=== PATIENT | female | born 1980 | race Caucasian/White ===

== ENCOUNTER → 2020-03-29 | Outpatient (CLI) | payer MEDICAID | LOC: COL.RAD 11:49 | DX: G43.109 Migraine with aura, not intractable, without status migrainosus (principal); M54.12 Radiculopathy, cervical region; Z86.69 Personal history of other diseases of the nervous system and sense organs; M47.812 Spondylosis without myelopathy or radiculopathy, cervical region ==

== ENCOUNTER → 2020-07-02 | Outpatient (CLI) | payer MEDICAID | LOC: MHCPAIN 13:16 | DX: M47.812 Spondylosis without myelopathy or radiculopathy, cervical region (principal); R51.9 Headache, unspecified; M54.2 Cervicalgia; G89.29 Other chronic pain | CPT/HCPCS: G0463 ==